=== PATIENT | female | born 1995 ===

== ENCOUNTER → 2017-03-16 | Outpatient (CLI) | payer OTHER | END | disposition home or self-care (01) | LOC: PPH VACUNA 12:35 | DX: Z23 Encounter for immunization (principal) ==

== ENCOUNTER 2018-12-08 12:08 | Outpatient (CLI) | payer OTHER | END 2018-12-08 15:29 | disposition home or self-care (01) | LOC: TOM 12:08 | DX: R51 Headache (principal) ==

== ENCOUNTER 2019-01-29 17:38 | Emergency (ER) | payer OTHER ==
[~2019-01-29] VITALS: Ht 165.1 cm; Wt 72.6 kg
== END 2019-01-29 21:49 | disposition home or self-care (01) ==
LOC: ER 17:38
DX: S13.4XXA Sprain of ligaments of cervical spine, initial encounter (principal); S20.02XA Contusion of left breast, initial encounter; V49.9XXA Car occupant (driver) (passenger) injured in unspecified traffic accident, initial encounter; Y93.89 Activity, other specified; Y92.488 Other paved roadways as the place of occurrence of the external cause; Y99.8 Other external cause status

== ENCOUNTER 2019-03-25 13:29 | Emergency (ER) | payer OTHER ==
[~2019-03-25] VITALS: Ht 165.1 cm; Wt 72.6 kg
== END 2019-03-25 20:39 | disposition home or self-care (01) ==
LOC: ER 13:29
DX: B34.9 Viral infection, unspecified (principal)

== ENCOUNTER 2020-01-12 00:49 | Emergency (ER) | payer OTHER ==
[~2020-01-12] VITALS: Ht 167.6 cm; Wt 72.6 kg
[2020-01-12] MEDS ORDERED: KETO10TA2 PO (05:13)
== END 2020-01-12 05:18 | disposition home or self-care (01) ==
LOC: ER 00:49
DX: S92.325A Nondisplaced fracture of second metatarsal bone, left foot, initial encounter for closed fracture (principal); S92.335A Nondisplaced fracture of third metatarsal bone, left foot, initial encounter for closed fracture; W18.09XA Striking against other object with subsequent fall, initial encounter; Y93.89 Activity, other specified; Y92.018 Other place in single-family (private) house as the place of occurrence of the external cause; Y99.8 Other external cause status